=== PATIENT | male | born 1965 | race African-American/Black ===

== ENCOUNTER → 2017-03-18 15:40 | Outpatient (CLI) | payer MEDICAID ==
[~2017-03-18 15:40] MED LIST: CREON (PANCRELI1 CAP PO; NORVASC10 MG PO
[2017-03-18 16:23] LABS: ALBUMIN 3.6 g/dL (3.4-5.0); BILIRUBIN - INDIRECT 0.16 mg/dL (0.00-1.00); BILIRUBIN - TOTAL 0.21 mg/dL (0.2-1.3); PROTEIN - SERUM 7.9 g/dL (6.4-8.2)
[2017-03-18 16:26] LABS: BILIRUBIN - DIRECT 0.05 mg/dL (0.00-0.30)
[2017-04-08 11:05] VITALS: BMI 22.8
== END | disposition home or self-care (01) ==
LOC: D.LAB 15:40
PROVIDERS: Internal Medicine Gastroenterology
DX: Z12.11 Encounter for screening for malignant neoplasm of colon (principal); K76.0 Fatty (change of) liver, not elsewhere classified; K76.89 Other specified diseases of liver

== ENCOUNTER 2017-04-08 09:07 | Day surgery (SDC) | payer MEDICAID ==
[~2017-04-08] VITALS: Ht 167.6 cm; Wt 64.1 kg
--- NOTE | ~2017-04-08 | OP ---
PATIENT NAME: TAL APARICIO MEDICAL RECORD: [id number] :63 LOCATION:[facility] ADMISSION DATE: SURGEON: BLANCA KWON DO DATE OF OPERATION: 04/08/2017 PROCEDURE: Colonoscopy with injection submucosally, biopsies, and polypectomy with a hot snare. SCOPE: [employer] video pediatric colonoscope. INDICATIONS FOR PROCEDURE: Colon cancer screening, steatosis of liver, liver cyst. ESTIMATED BLOOD LOSS: Minimal. COMPLICATIONS: None. FINDINGS: Informed consent was given. The patient was made comfortable with the above medication. After reaching an adequate level of sedation by slow IV push, the patient was placed on his left side. A digital rectal examination was performed and was normal. The endoscope was then advanced under direct visualization through the rectum to the cecum with visualization of the appendiceal orifice and ileocecal valve. The scope was slowly withdrawn and mucosa was carefully examined. The prep quality was good. There was an ascending colon polyp, which was benign appearing and sessile, measuring approximately 9 mm in diameter. It was removed using hot snare in one piece and completely retrieved. Located approximately 75 cm from the anal verge in the distal ascending colon/proximal transverse/hepatic flexure, a tumor was visualized, which measured approximately 4 cm x 2 cm. It encompassed approximately 50% of the circumference of the lumen of the colon. It appeared infiltrative and had areas of ulceration. Multiple biopsies were taken with cold forceps to submit for histology. Around this site, there were multiple smaller, benign-appearing polyps, which were sessile in nature. These were not removed on today examination as they will likely be resected out with the primary tumor. In the transverse colon and the descending colon, there were 2 other benign-appearing semi-pedunculated polyps, which measured approximately 8 mm to 11 mm in size. They were both removed using a hot snare in one piece and completely retrieved. Retroflexion was performed in the rectum with normal-appearing rectal wall. The endoscope was withdrawn from the patient. The patient tolerated the procedure well and there were no complications. Please note that approximately 8 cc of Ryann ink tattoo was injected submucosally in total, combined both proximal and distally to the hepatic flexure mass for further visualization both surgical and endoscopic as needed. Again, the scope was completely withdrawn from the patient. The patient tolerated the procedure well and there were no complications. IMPRESSION: 1. Colon tumor located at 75 cm from the anal verge. This was extensively biopsied and tattooed for further intervention. 2. Ascending colon polyp removed using a hot snare as described above. 3. Multiple polyps in the segment of bowel surrounding the tumor, which were not removed today as they will be resected likely with further intervention. 4. A transverse and descending colon semi-pedunculated polyps, which were removed using hot snare. OPERATIVE REPORT [id number] TAL APARICIO PLAN AND RECOMMENDATIONS: 1. Discharge home when recovery parameters are met. 2. 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 3. Await biopsy results. 4. Continue current medications. 5. Further recommendations will be dependent on biopsy results and further interventions. TRANSINT:[id number] Voice Confirmation ID: [id number] DOCUMENT ID: [id number] BLANCA KWON DO at 1057 CC: [id number] DICTATION DATE: 04/08/[address] SUPERINTENDENT: 04/08/17 1414 [facility] 04/08/17 [id number] [place] [address]
[2017-04-08 09:41] LABS: HEMATOCRIT 39.6 % (42.0-54.0); HEMOGLOBIN 13.1 g/dL (13.5-17.5); MCH 32.4 pg (26.0-34.0); MCHC 33.1 g/dL (31.0-37.0); MEAN PLATELET VOLUME 9.2 fL (7.4-10.4); RBC 4.04 10x6/uL (4.20-6.10); RDW 13.7 % (11.5-14.5); WBC 4.6 10x3/uL (4.8-10.8)
[2017-04-08] MEDS ORDERED: NORVASC10 MG PO (10:54)
[2017-04-08] MEDS ORDERED: CREON (PANCRELI1 CAP PO ×2 (10:55→10:56)
[2017-04-08 11:05] VITALS: BP 123/74; Ht 167.6 cm; Wt 64.1 kg
== END 2017-04-08 15:00 | disposition home or self-care (01) ==
LOC: D.OPS 09:07
PROVIDERS: Anesthesiology
DX: Z12.11 Encounter for screening for malignant neoplasm of colon (principal); D12.2 Benign neoplasm of ascending colon; D12.4 Benign neoplasm of descending colon; D12.3 Benign neoplasm of transverse colon; K76.0 Fatty (change of) liver, not elsewhere classified; K76.89 Other specified diseases of liver; Z01.812 Encounter for preprocedural laboratory examination

== ENCOUNTER → 2017-04-22 10:10 | Outpatient (CLI) | payer MEDICAID ==
[2017-04-08 11:05] VITALS: BMI 22.8
== END | disposition home or self-care (01) ==
LOC: D.CT 04-16 10:00
DX: K63.9 Disease of intestine, unspecified (principal)

== ENCOUNTER → 2017-05-02 10:11 | Outpatient (CLI) | payer MEDICAID ==
[2017-04-08 11:05] VITALS: BMI 22.8
== END | disposition home or self-care (01) ==
LOC: D.US 10:11
DX: R93.5 Abnormal findings on diagnostic imaging of other abdominal regions, including retroperitoneum (principal)

== ENCOUNTER 2017-05-24 08:52 | Inpatient (IN) | payer MEDICAID ==
--- NOTE | ~2017-05-24 | OP ---
PATIENT NAME: TAL APARICIO MEDICAL RECORD: [id number] :63 LOCATION:[id number] ADMISSION DATE:05/24/17 SURGEON: ROBB BRAUN MD DATE OF OPERATION: 05/24/2017 PREOPERATIVE DIAGNOSES: 1. Right colon mass. 2. Symptomatic gallstones. POSTOPERATIVE DIAGNOSES: 1. Right colon mass. 2. Symptomatic gallstones. 3. Hepatomegaly. 4. Fatty infiltration of the liver, which is localized to the medial aspect of the left lobe of the liver. PROCEDURE: 1. Hand-assisted laparoscopic surgery - right colectomy. 2. Laparoscopic cholecystectomy. 3. Intraoperative cholangiography without immediate surgeon interpretation. 4. An 18-gauge core needle liver biopsy. SURGEON: Robb Braun MD DELIVERY DRIVER/SUPERVISOR: None. BLOOD LOSS: Less than 50 cc. ANESTHESIA: General. COMPLICATIONS: None. The risks, possible complications, and alternatives of the procedure were explained to the patient. He elects to proceed. He agreed to cholecystectomy when I spoke to him in the holding area prior to surgery. OPERATIVE COURSE: The patient was conveyed to the operating room electively on 05/24/2017. General anesthesia was induced by the anesthesia staff. The abdomen was sterilely prepped and draped. An incision was accomplished within the umbilicus. Sharp dissection was carried down to the level of a non-incarcerated umbilical hernia. I sharply cleaned the surrounding fascia around the hernia defect. A 0 Vicryl sutures were placed on either side of the hernia defect. Through the hernia defect, I advanced a 12-mm trocar. CO2 insufflation was begun. Once a sufficient pneumoperitoneum had been achieved, a 5-mm trocar was inserted through an incision in the epigastrium. Another 5-mm trocar was inserted through an incision in the right upper quadrant. Another 5-mm trocar was inserted through an incision far laterally in the right upper quadrant. During insertion of the trocars, there was no apparent injury to the bowels, any intraperitoneal or retroperitoneal structures. An abdominal survey was undertaken. The tattooed area, which was in the proximal transverse colon was easily identifiable. The indication for liver biopsy was hepatomegaly. Under laparoscopic guidance, I percutaneously accessed the right upper quadrant utilizing an 18-gauge core OPERATIVE REPORT [id number] TAL APARICIO needle liver biopsy device. Cores were obtained over the convexity of the liver. The biopsy sites were made hemostatic with the electrocautery. I then advanced the cholangiogram trocar. I punctured the fundus of the gallbladder. I aspirated bile. I then injected dye. Under real time fluoroscopy, static cholangiography images were obtained and these are sent to the radiologist for interpretation. I withdrew the cholangiogram trocar. I then grasped the gallbladder and retracted it cephalad. The infundibulum was grasped and retracted laterally. Blunt dissection was begun on the triangle of Calot. Two cystic arteries and one cystic duct were identified. These were clipped multiply and divided between clips. The gallbladder was then excised from its bed and the liver. It was placed within an Endobag retrieval device and was withdrawn through the umbilical fascia defect. I irrigated and aspirated the right upper quadrant. There was no bleeding even at low pressure of 8. In the right upper quadrant, a transverse incision was accomplished. This encompassed one of the trocar incisions. Sharp dissection was carried down through the skin and subcutaneous tissues. The external oblique muscle was identified and was incised along the direction of its fibers. This was a muscle technique. I then the internal oblique and transversus abdominis muscles. I entered the peritoneal cavity sharply. The Gelport device was placed. Laparoscopically, I incised along the right white line of Toldt. I then took down the retroperitoneal attachments at the hepatic flexure. I took the top off the Gelport. I then exteriorized the right colon and the proximal transverse colon. I swept down the duodenum. The ureter was swept down and protected during the entire procedure as well. I created a window in the mesentery of the small bowel. I stapled across the ileum with a NEVILLE-75 stapler. I then chose an area for the distal extent of my resection, which was distal to the mass, which had been tattooed and was palpable. This transection was proximal to the middle colic artery. A window was created in the mesentery of the colon and then I stapled across the colon at this site with a NEVILLE-75 stapler. The interposed mesentery was taken down with the EnSeal device. The specimen was opened on the back table. Grossly, there were free margins. I rescrubbed and regowned. I ensured that the small bowel was not twisted on its mesentery. Stay sutures of 3-0 Vicryls were placed between the colon and the ileum, which were positioned side by side. A small enterotomy and small colotomy were accomplished and I advanced anvils of the NEVILLE-75 stapler. I then fired. The resulting enterocolonic defect was closed with a single firing of the TA 60 stapler. There was no bleeding. I returned the anastomosis to the abdominal cavity. We irrigated and aspirated in the right upper quadrant. There was no bleeding. The internal oblique and transverse abdominis muscle layers were closed with a running #1 Vicryl. The external oblique muscle was closed with a running #1 Vicryl. The subdermis in the right upper quadrant was closed with interrupted OPERATIVE REPORT [id number] TAL APARICIO 3-0 Vicryls. The skin in the right upper quadrant was closed with a running intracuticular 3-0 Vicryl. The umbilical hernia defect at the umbilicus was closed with 0 Vicryl sutures. The skin at the umbilicus was closed with interrupted 4-0 Vicryl Rapide sutures. The other 2 trocar sites were closed with interrupted intracuticular 3-0 Vicryls. Benzoin and Steri-Strips were applied. The patient was then extubated and conveyed to the post-anesthesia care unit where he was in stable condition. TRANSINT:[id number] Voice Confirmation ID: [id number] DOCUMENT ID: [id number] ROBB BRAUN MD at 1019 CC: [id number] DICTATION DATE: 05/24/17 1444 ANNEALING OPERATOR: 05/24/17 1521 [facility] 05/27/17 [place] [id number] [place] [id number]
--- NOTE | ~2017-05-24 | DS ---
PATIENT:TAL APARICIO :63 MEDICAL RECORD: [id number] DISCHARGE SUMMARY ADMISSION DATE: 05/24/17 DISCHARGE DATE: 05/27/17 PRINCIPAL DIAGNOSES: 1. 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 There was also a tubular adenoma adjacent to the main tubulovillous adenoma. 2. Nonspecific sinusoidal congestion and microvacuolar degeneration of some hepatocytes on a liver biopsy. 3. Borderline chronic cholecystitis, nonspecific. 4. Hepatomegaly. PROCEDURE: 1. Hand-assisted laparoscopic right hemicolectomy. 2. Laparoscopic cholecystectomy. 3. An 18-gauge core needle liver biopsies. 4. Intraoperative cholangiogram without immediate surgeon interpretation. HOSPITAL COURSE: The patient was admitted and underwent the above operative procedure. Postoperatively, his pain was initially controlled with an epidural pain pump. This was removed. He was transitioned to oral analgesia. He is being dismissed home. He is going to be following up with me in the office in 2-3 weeks. TRANSINT:[id number] Voice Confirmation ID: [id number] DOCUMENT ID: [id number] POLY BRAUN MD at 1019 CC: DEANDRE OWENS MD [id number] DICTATION DATE: 05/27/171935 TRACK HOE OPERATOR: 05/28/17 1130 DIS IN 05/27/17 [facility] [address] [place] [address]
[2017-05-24 09:29] LABS: HEMATOCRIT 40.9 % (42.0-54.0); HEMOGLOBIN 13.9 g/dL (13.5-17.5); MCH 32.9 pg (26.0-34.0); MCV 96.7 fL (80.0-100.0); MEAN PLATELET VOLUME 9.4 fL (7.4-10.4); RBC 4.23 10x6/uL (4.20-6.10); RDW 13.2 % (11.5-14.5); WBC 6.4 10x3/uL (4.8-10.8)
[2017-05-24 09:38] LABS: CALC OSMOLALITY 264 mosm/kg (275-300); CARBON DIOXIDE 28.1 mmol/L (21.0-32.0); CHLORIDE - SERUM 96 mmol/L (98-107); GLUCOSE 78 mg/dL (74-106); POTASSIUM - SERUM 3.5 mmol/L (3.5-5.1); SODIUM 133 mmol/L (136-145); UREA NITROGEN 12 mg/dL (7-18); eGFR NON AFRICAN AMERICAN 83 mL/min (90-120)
[2017-05-24] MEDS ORDERED: HYDROCHLOROTH12.5 M1 PO (10:22)
[2017-05-24] MEDS ORDERED: ADVAIR 100/501 DISK INH (10:23)
[2017-05-24] MEDS ORDERED: PROAIR HFA8.5 GM INH (10:24)
[2017-05-24 10:28] VITALS: BP 110/80; BMI 22.8
[2017-05-24 15:36] VITALS: BP 136/52
[2017-05-24 15:48] VITALS: BP 130/52; BMI 22.8
[2017-05-24 20:00] VITALS: BP 118/62
[2017-05-25 04:00] VITALS: BP 114/57
[2017-05-25 05:45] LABS: BASOPHILS 0.1 % (0-2); EOSINOPHILS 0 % (0-7); HEMATOCRIT 35.7 % (42.0-54.0); IMMATURE GRANULOCYTES 0.2 % (0-5); LYMPHOCYTES 9.5 % (15-50); MCH 32.2 pg (26.0-34.0); MCHC 33.6 g/dL (31.0-37.0); MCV 95.7 fL (80.0-100.0); MONOCYTES 7.9 % (2-11); NEUTROPHILS 82.3 % (40-80); PLATELET COUNT 188 10x3/uL (130-400); RBC 3.73 10x6/uL (4.20-6.10)
[2017-05-25 05:47] LABS: WBC 12.2 10x3/uL (4.8-10.8)
[2017-05-25 06:08] LABS: ALKALINE PHOSPHATASE 79 U/L (46-116); ALT (SGPT) 40 U/L (10-68); CALC OSMOLALITY 267 mosm/kg (275-300); CALCIUM 8.3 mg/dL (8.5-10.1); CARBON DIOXIDE 23.9 mmol/L (21.0-32.0); CHLORIDE - SERUM 101 mmol/L (98-107); CREATININE - SERUM 0.8 mg/dL (0.6-1.3); GLUCOSE 77 mg/dL (74-106); PHOSPHOROUS 3.4 mg/dL (2.5-4.9); POTASSIUM - SERUM 3.8 mmol/L (3.5-5.1); PROTEIN - SERUM 7.2 g/dL (6.4-8.2); SODIUM 135 mmol/L (136-145); TROPONIN-I < 0.017 ng/mL (0.000-0.060); UREA NITROGEN 11 mg/dL (7-18); eGFR NON AFRICAN AMERICAN > 90 mL/min (90-120)
[2017-05-25 09:19] VITALS: BP 107/62
[2017-05-25 12:45] VITALS: BP 113/60
[2017-05-25 14:45] VITALS: BP 143/70
[2017-05-25 21:18] VITALS: BP 158/76
[2017-05-26] VITALS: BP 158/74
[2017-05-26 04:00] VITALS: BP 160/76
[2017-05-26 08:33] VITALS: BP 119/64
[2017-05-26 12:36] VITALS: BP 147/66
[2017-05-26 17:01] VITALS: BP 130/64
[2017-05-26 21:21] VITALS: BP 186/75
[2017-05-27 01:15] VITALS: BP 176/74
[2017-05-27 04:38] VITALS: BP 133/75
[2017-05-27 08:19] VITALS: BP 158/62
[2017-05-27 12:54] VITALS: BP 149/50
[2017-05-27 16:00] VITALS: BP 115/50
== END 2017-05-27 20:13 | disposition home or self-care (01) | DRG 330 ==
LOC: D.MS 08:52 → D.SDCHOLD 08:52 → D.MS 15:21 → D.SDCHOLD 15:33 → D.MS 15:33
PROVIDERS: Anesthesiology; Surgery
PROC: 0FB14ZX Excision of Right Lobe Liver, Percutaneous Endoscopic Approach, Diagnostic (ICD-10-PCS; 2017-05-24)
PROC: BF121ZZ Fluoroscopy of Gallbladder using Low Osmolar Contrast (ICD-10-PCS; 2017-05-24)
PROC: 0DTF0ZZ Resection of Right Large Intestine, Open Approach (ICD-10-PCS; principal; 2017-05-24 11:00)
PROC: 0FT44ZZ Resection of Gallbladder, Percutaneous Endoscopic Approach (ICD-10-PCS; 2017-05-24 11:00)
DX: D12.2 Benign neoplasm of ascending colon (principal); K80.10 Calculus of gallbladder with chronic cholecystitis without obstruction; K76.0 Fatty (change of) liver, not elsewhere classified

== ENCOUNTER → 2017-07-09 14:00 | Outpatient (CLI) | payer MEDICAID ==
[~2017-07-09 14:00] MED LIST changes: +ADVAIR 100/501 DISK INH; +HYDROCHLOROTH12.5 M1 PO; +PROAIR HFA8.5 GM INH
[2017-07-09 15:14] LABS: AMYLASE - SERUM 163 U/L (25-115); LIPASE 248 U/L (73-393)
== END | disposition home or self-care (01) ==
LOC: D.LAB 07-05 08:15
PROVIDERS: Internal Medicine Gastroenterology
DX: K85.90 Acute pancreatitis without necrosis or infection, unspecified (principal); Z86.010 Personal history of colon polyps